=== PATIENT | female | born 1965 | race Caucasian/White ===

== ENCOUNTER → 2023-12-08 | Outpatient (CLI) | payer OTHER, SELFPAY ==
[2023-12-08 13:04] LABS: ALB/GLOB Ratio 1.1 RATIO (0.9-2.4); AST(SGOT) 19 U/L (15-37); Alanine Aminotransfer ALT/SGPT 30 U/L (13-56); Albumin, Serum 4.3 g/dL (3.2-5.0); Alkaline Phosphatase 55 U/L (45-117); Anion Gap 4 (5-15); BUN 23 mg/dL (7-18); BUN/Creat Ratio 27.2 RATIO (10-20); Calcium,Total 9.6 mg/dL (8.5-10.1); Chloride 107 mmol/L (98-107); Creatinine, Serum 0.84 mg/dL (0.55-1.02); EST Glomerular Filtration Rate 73 mL/min (>60); Est Glom Filt Rate - Afr Amer 88 mL/min (>60); Globulin 3.9 g/dL (2.2-4.2); Glucose 149 mg/dL (74-106); Magnesium 2.6 mg/dL (1.6-2.6); Protein, Total 8.2 g/dL (6.4-8.2); Sodium Level 136 mmol/L (136-145); Thyroid Stim Hormone (TSH) 1.09 uIU/mL (0.358-3.74)
== END | disposition home or self-care (01) ==
LOC: LAB 11:57
PROVIDERS: PCP Family Medicine; Referring Provider Internal Medicine Cardiovascular Disease; Visit Provider Internal Medicine Cardiovascular Disease
DX: I47.29 Other ventricular tachycardia (principal); E11.9 Type 2 diabetes mellitus without complications; I10 Essential (primary) hypertension; R00.2 Palpitations; R07.89 Other chest pain
CPT/HCPCS: 36415; 80053; 83735; 84443

== ENCOUNTER → 2023-12-29 | Outpatient (CLI) | payer OTHER, SELFPAY ==
--- NOTE | 2023-12-29 13:50 | ECHOD_ITS ---
Reason For Study: Chest Pain Procedure This was a 2D Doppler, Color Flow transthoracic echocardiogram. Exam performed in department. Left Ventricle Mild concentric left ventricular hypertrophy. The left ventricular ejection fraction is 65 %. Diastolic function is indeterminate. Right Ventricle Normal right ventricle. Atria The left atrium is mildly enlarged. Normal right atrium. Mitral Valve Trivial mitral valve insufficiency. Tricuspid Valve Normal tricuspid valve. Unable to estimate RV systolic pressure due to inadequate jet, pulmonary artery pressure probably normal. Aortic Valve Trisinus/trileaflet aortic valve. Trivial aortic valve insufficiency. Pulmonic Valve Trivial pulmonic valve insufficiency. Great Vessels Normal sized aortic root. Pericardium/Pleural No pericardial effusion. MMode/2D Measurements & Calculations LVIDd: 5.0 cm IVSd: 1.2 cm LVOT diam: 2.0 cm LVIDs: 3.3 cm LVPWd: 0.86 cm LVOT area: 3.2 cm2 FS: 33.8 % Ao root diam: 3.1 cm LAV(MOD-bp): 53.3 ml LVAd ap4: 28.6 cm2 LA dimension: 3.9 cm LAV(MOD-bp) Indexed: 27.6 ml/m2 LVLd ap4: 8.1 cm LAV(MOD-sp2): 54.6 ml EDV(MOD-sp4): 84.3 ml LAV(MOD-sp4): 50.0 ml EDV(sp4-el): 85.9 ml LVAs ap4: 15.2 cm2 LVLs ap4: 7.0 cm ESV(MOD-sp4): 29.9 ml ESV(sp4-el): 28.2 ml EF(MOD-sp4): 64.5 % EF(sp4-el): 67.2 % SV(MOD-sp4): 54.4 ml SV(sp4-el): 57.7 ml LA A4 area: 18.7 cm2 RA A4 area: 13.0 cm2 TAPSE: 2.4 cm Time Measurements MV dec time: 0.31 sec Doppler Measurements & Calculations MV E max rios: 60.6 cm/sec Lat Peak E' Rios: 8.5 cm/sec Med Peak E' Rios: 9.5 cm/sec MV A max rios: 73.0 cm/sec E/E' lat: 7.1 E/E' med: 6.4 MV E/A: 0.83 MV V2 max: 88.6 cm/sec MV P1/2t max rios: 83.5 cm/sec Ao V2 max: 175.1 cm/sec MV max P.1 mmHg MV P1/2t: 118.4 msec Ao max P.3 mmHg MV V2 mean: 46.4 cm/sec Ao V2 mean: 108.8 cm/sec MV mean P.0 mmHg MV dec slope: 206.7 cm/sec2 Ao mean P.4 mmHg MV V2 VTI: 32.0 cm MVA(P1/2t): 1.9 cm2 Ao V2 VTI: 33.5 cm AV (velocity ratio): 0.81 MVA(VTI): 2.7 cm2 ARCHIE(I,D): 2.6 cm2 ARCHIE(V,D): 2.5 cm2 LV V1 max: 136.2 cm/sec SV(LVOT): 86.8 ml PA V2 max: 113.4 cm/sec LV V1 max P.4 mmHg PA max PG (full): 2.7 mmHg LV V1 mean P.8 mmHg LV V1 mean: 89.0 cm/sec LV V1 VTI: 27.1 cm ECHO/Echo Complete Interpretation Summary Mild concentric left ventricular hypertrophy. The left ventricular ejection fraction is 65 %. The left atrium is mildly enlarged. Ordering Physician: Cathi Goncalves Referring Physician: Cathi Goncalves Performed By: Oliverio Moreno and Student
== END | disposition home or self-care (01) ==
LOC: CVS 13:50
PROVIDERS: PCP Family Medicine; Referring Provider Internal Medicine Cardiovascular Disease; Visit Provider Internal Medicine Cardiovascular Disease
DX: R07.89 Other chest pain (principal); I47.29 Other ventricular tachycardia; R00.2 Palpitations; I10 Essential (primary) hypertension
CPT/HCPCS: 93306

== ENCOUNTER → 2024-03-18 | Outpatient (CLI) | payer OTHER, SELFPAY ==
--- NOTE | 2024-03-21 11:02 | STRESSREP_ITS ---
Stress Test Report Date: 03/21/2024 Procedure: Exercise tolerance test/imaging study Indications: Palpitations Consent: Per the patient Procedure: The patient exercised on a Helio protocol for 7 minutes and 1 second achieving a peak heart rate of 153 bpm (95% predicted maximal heart rate) with a peak blood pressure 157/70 mmHg and a peak MET capacity of 10.1 METs. The baseline ECG demonstrated normal sinus rhythm. The peak exercise ECG demonstrated no significant ischemic changes. EKG during recovery revealed no significant ischemic changes [There were no cardiac dysrhythmias pretest, during exercise, or recovery]. The functional capacity was considered normal for age. There was [no complaint of chest discomfort during exercise or recovery]. The examination was discontinued secondary to dyspnea. Impression: 1. Technically adequate (percent predicted maximal heart rate greater than 85%) exercise tolerance test 2. Stress test is negative for exercise-induced EKG changes of ischemia 3. The test test is negative for exercise-induced chest pain 4. Functional capacity is normal for age 5. Nuclear images pending Myocardial perfusion imaging study: Technique: The patient was injected with 12 mCi of technetium 99m Cardiolite and subsequently rest SPECT Cardiolite nuclear imaging was obtained in the horizontal long, vertical long, and short axis views. The patient exercised on a Helio protocol. Please see above for details. The patient was injected with 33.9 mCi of technetium 99m Cardiolite and subsequently stress SPECT Cardiolite nuclear imaging was obtained in the horizontal long, vertical long, and short axis views. A gated Cardiolite study at peak stress was obtained. Interpretation: Rest and stress SPECT Cardiolite nuclear imaging status post realignment, normalization, and attenuation correction, demonstrates overall normal myocardial radioisotope uptake. The gated Cardiolite study demonstrates no significant regional wall motion abnormalities. The reported LVEF is 71%. Impression: 1. There is no evidence of significant ischemia or infarction. 2. The gated Cardiolite study reports an LVEF of 71%. This note was generated with [employer] software. It may contain incorrect words, spelling, and punctuation that were not noted in checking the note before signing.
== END | disposition home or self-care (01) ==
PROVIDERS: PCP Family Medicine; Referring Provider Internal Medicine Cardiovascular Disease; Visit Provider Internal Medicine Cardiovascular Disease
DX: R07.89 Other chest pain (principal); I47.29 Other ventricular tachycardia; I10 Essential (primary) hypertension; R00.2 Palpitations
CPT/HCPCS: 78452; 93017; A9500; A4216

== ENCOUNTER → 2025-01-17 | Outpatient (CLI) | payer SELFPAY ==
--- NOTE | 2025-01-17 11:00 | BI_ITS ---
EXAM: SCRN MAMM (CAD)W/KINGS BILAT DATE: 01/17/2025 CLINICAL HISTORY: F, Age 59 y/o , BREAST CANCER SCREENING TECHNIQUE: SCRN MAMM (CAD)W/KINGS BILAT COMPARISON: None available FINDINGS: TISSUE DENSITY: There are scattered areas of fibroglandular density. Bilateral Breast Mammographic Findings: No suspicious masses, calcifications or other abnormalities are identified. Bilateral benign calcifications. BI/SCRN MAMM (CAD)W/KINGS BILAT IMPRESSION: No mammographic evidence of malignancy in either breast. OVERALL FINAL ASSESSMENT BI-RADS 2: BENIGN RECOMMENDATION: Routine annual follow-up in 1 Year A letter with findings and recommendations will be mailed to the patient. Reading Location: [id number]
== END | disposition home or self-care (01) ==
PROVIDERS: PCP Family Medicine; Referring Provider Nurse Practitioner Family; Visit Provider Nurse Practitioner Family
DX: Z12.31 Encounter for screening mammogram for malignant neoplasm of breast (principal)
CPT/HCPCS: 77063; 77067